=== PATIENT | female | born 1995 ===

== ENCOUNTER 2016-12-27 19:48 | Emergency (ER) | payer OTHER ==
[~2016-12-27] VITALS: Ht 170.2 cm; Wt 101.8 kg
[2016-12-27 20:02] VITALS: BP 136/86; RESP 16; O2SAT 99
[2016-12-27 20:33] LABS: BASOPHILS % (AUTO) 0.5 % (0-3); EOSINOPHILS % (AUTO) 0.7 % (0-5); MONOCYTES % (AUTO) 7.5 % (4-12); Mean Corpuscular Hemoglobin 28.4 pg (27.0-35.0); Mean Corpuscular Volume 88.1 fL (81-100); NEUTROPHILS % (AUTO) 80.6 % (40-74); Platelet Count 328 bil/L (150-400)
--- NOTE | 2016-12-27 21:48 | ED.REPORT ---
HPI-General Illness Date of Service Dec 27, 2016 ED Provider: Alexy Breen MD A healthy 21 year old female presents to the ER complaining of sore throat onset yesterday. Associated symptoms include productive cough, fever, chills, and diaphoresis. She was seen by her PCP today and diagnosed with tonsillitis, and was prescribed a course of antibiotics. Nursing Notes Stated Complaint: THROAT HURTS Chief Complaint: ENT & Mouth Nursing Notes Reviewed: Yes Allergies: Coded Allergies: No Known Allergies (Unverified , 12/27/16) Scheduled PRN Ibuprofen (Ibuprofen) 600 Mg Tablet 600 MG PO QID PRN PRN For Pain General Time Seen by MD: 21:48 Chief Complaint Sore throat Hx Obtained From: Patient Arrived By: Walk-in Sudden in Onset?: No Onset Occurred: Yesterday Symptom Duration: Since onset Associated with: Reports: Cough, Diaphoresis, Fever Additional Notes: Chills Pertinent Negative: Pt denies other symptoms Past Medical History Past Medical History None reported Smoking History Unknown if Ever Smoker Social History Other Social History: Good social support Ambulatory Status Independent Review of Systems +Productive Cough Full Review of Systems Constitutional: Reports: Chills, Fever Ears / Nose / Throat: Reports: Sore throat GI: Reports: Nausea, Denies: Abdominal pain, Vomiting Skin: Reports Diaphoresis Neurologic: Reports: Shaking Complete sys rev & neg: except as marked. Physical Exam Vital Signs Vital Signs Date Time Temp Pulse Resp B/P Pulse Ox O2 Delivery O2 Flow Rate FiO2 12/27/16 22:38 38.8 117 124/84 93 Room Air 12/27/16 20:02 37.3 115 16 136/86 99 Room Air Initial VS: Reviewed General/Constitutional: Well-developed, Well-nourished Head / Eyes: Atraumatic, Normocephalic, PERRL Neck: Supple, Non-tender, Full range of motion Abdomen / GI: Soft, Non-tender, No guarding, No rebound, No distention Extremities: Vascular intact, Neuro intact, No swelling, No tenderness Skin: Warm, Dry, No cyanosis Neurologic: Alert, Oriented, Nonfocal ENT: Airway patent, Mucous membranes moist, No trismus Pharynx / Tonsils / Uvula: Positive: Pharyngeal erythema Beefy red throat with exudate. Good tonsillar, palatine excursion. Respiratory / Chest: Breath sounds NL, No respiratory distress, No rales, No rhonchi, No wheezing Cardiovascular: Heart rate NL, Regular rhythm, Heart sounds NL, Cap refill not delayed, Peripheral circulation NL Interpretation & Diagnostics Lab Results Interpretation Result Diagram: 12/27/16202412/27/162024 Test 12/27/16 20:25 White Blood Count 15.1th/mm3 (3.8-10.1) Red Blood Count 4.86mil/mm3 (3.90-5.20) Hemoglobin 13.8g/dL (12.0-15.6) Hematocrit 42.8% (35.0-46.0) Mean Corpuscular Volume 88.1fL (81-100) Mean Corpuscular Hemoglobin 28.4pg (27.0-35.0) Mean Corpuscular Hemoglobin Concent 32.2% (32.0-37.0) Red Cell Distribution Width 14.6% (12.3-15.4) Platelet Count 328bil/L (150-400) Neutrophils (%) (Auto) 80.6% (40-74) Lymphocytes (%) (Auto) 10.6% (14-46) Monocytes (%) (Auto) 7.5% (4-12) Eosinophils (%) (Auto) 0.7% (0-5) Basophils (%) (Auto) 0.5% (0-3) Sodium Level 138mEq/L (134-144) Potassium Level 3.9mEq/L (3.5-5.2) Chloride Level 99mEq/L (97-108) Carbon Dioxide Level 22mmol/L (18-29) Blood Urea Nitrogen 10mg/dL (6-20) Creatinine 0.68mg/dL (0.57-1.00) Estimat Glomerular Filtration Rate 156mL/min (>59) Glucose Level 98mg/dL (60-99) Calcium Level 9.8mg/dL (8.5-10.1) Total Bilirubin 0.3mg/dL (0.0-1.2) Aspartate Amino Transf (AST/SGOT) 14U/L (0-50) Alanine Aminotransferase (ALT/SGPT) 15U/L (0-32) Alkaline Phosphatase 88U/L (25-150) Total Protein 8.5g/dL (6.4-8.4) Albumin 4.4g/dL (3.4-5.0) Hold [place] Top Tube Received (Received) Re-Eval/Medical Decision Med Decision/Clinical Course 41-year-old begun on antibiotics from urgent visit with a sore throat. She just started today and still is sore throat. Will add a Decadron dose for discomfort relief, and she would like an injection of antibiotic to speed her recovery. We have provided a gram of Rocephin IM to that end. Toradol given IM here. Ibuprofen to follow. Follow-up with PCP. Time of Eval: 21:54 Re-Evaluation/Progress Note: Discussed physical examination findings and plan to discharge. Patient is amenable to the plan. Return precautions given. All other questions addressed. Counseled Regarding: Diagnosis, Need for follow-up, When/why to return to ED Discharge & Departure Primary Impression: Pharyngitis Disposition: Home Discharge Condition All VS Reviewed: Yes Condition: Stable Patient Instructions: Pharyngitis (ED) Additional Instructions: Clear fluids and advance as tolerated Ibuprofen four times daily for pain.. Continue prescribed antibiotics. Follow-up with your doctor in the office Return if any difficulties developing with breathing or speaking or swallowing. Referrals: Júnior Jacob MD (PCP) Scribe Attestation Portions of this note were transcribed by Oscar Harris. I, Dr. Breen, personally performed the history, physical exam and medical decision-making; I reviewed and confirmed the accuracy of the information in the transcribed note. Signed by: Aundrea Tenorio. 12/27/2016 - 22:00 copies to: Júnior Jacob MD, Christopher W MD Dec 27, 2016 21:48 OSCAR HARRIS Dec 27, 2016 21:55
[2016-12-27] MEDS ORDERED: Dexamethasone 20 mg/2 mL Oral Solution PO ONE (21:55)
[2016-12-27] MEDS ORDERED: cefTRIAXone Inj 1,000 MG, Lidocaine PF 1% Inj 2.1 ML in Syringe 0 EACH IM ONE (21:55)
[2016-12-27] MEDS ORDERED: Ketorolac 30 mg/mL 2 mL Inj IM ONE (21:55)
[2016-12-27] MEDS ORDERED: IBUP-1827 PO (21:57)
[2016-12-27 22:38] VITALS: BP 124/84; PULSE 117; O2SAT 93
== END 2016-12-27 22:39 | disposition home or self-care (01) ==
LOC: SED 19:48
DX: J02.9 Acute pharyngitis, unspecified (principal)
CPT/HCPCS: 36415; 80053; 85025; 96372; 99284; J0696; J1885